=== PATIENT | female | born 1955 | race Caucasian/White ===

== ENCOUNTER 2017-08-03 10:17 | Emergency (ER) | payer OTHER ==
[2017-08-03 10:37] VITALS: PULSE 60; RESP 18; TEMP 97.6; O2SAT 100
[2017-08-03] MEDS ORDERED: Sodium Chloride 0.9% 1,000 ML IV STA (10:58)
--- NOTE | 2017-08-03 11:54 | ED PDOC ---
HPI: General Adult Time Seen by Provider: 08/03/17 10:39 Chief Complaint (Nursing): Flu-like Symptoms Chief Complaint (Provider): Cough, Sore Throat, Fever, Body Aches History Per: Patient History/Exam Limitations: no limitations Onset/Duration Of Symptoms: Days (x6) Additional Complaint(s): 62 year old female presenting with cough, sore throat, fever and body aches x6 days. The patient states that her body aches are constant, her fever is intermittent and her cough is dry. patient also states that she has been feeling fatigues and has been having palpitations. She reports that she took advil and tylenol which offered no relief. Denies chest pain, difficulty breathing. Non [facility] Provider, Past Medical History Reviewed: Historical Data, Nursing Documentation, Vital Signs Vital Signs: Last Vital Signs Temp 97.6 F 08/03/17 10:36 Pulse 60 08/03/17 10:36 Resp 18 08/03/17 10:36 BP 122/70 08/03/17 14:05 Pulse Ox 100 08/03/17 15:38 - Medical History PMH: HTN - Surgical History Other surgeries: Tubal Ligation - Family History Family History: States: Unknown Family Hx - Social History Current smoker - smoking cessation education provided: No Ex-Smoker (has not smoked in the last 12 months): No Alcohol: None Drugs: Denies - Home Medications Home Medications: Ambulatory Orders Medication Instructions Recorded guaiFENesin/Dextromethorphan 1 tab PO Q6 PRN #20 tab 08/03/17 [guaiFENesin/DM 600-30 mg] - Allergies Allergies/Adverse Reactions: Allergies Allergy/AdvReac Type Severity Reaction Status Date / Time Penicillins Allergy RASH Verified 08/03/17 10:35 Review of Systems ROS Statement: Except As Marked, All Systems Reviewed And Found Negative Constitutional: Positive for: Fever, Other (body aches; Fatigue) ENT: Positive for: Throat Pain Cardiovascular: Positive for: Palpitations. Negative for: Chest Pain Respiratory: Positive for: Cough Physical Exam - Reviewed Nursing Documentation Reviewed: Yes Vital Signs Reviewed: Yes - Physical Exam Appears: Positive for: Non-toxic, No Acute Distress Head Exam: Positive for: ATRAUMATIC, NORMAL INSPECTION, NORMOCEPHALIC Skin: Positive for: Normal Color, Warm, Dry. Negative for: Rash Eye Exam: Positive for: Normal appearance, EOMI, PERRL. Negative for: Nystagmus ENT: Positive for: Normal ENT Inspection. Negative for: Nasal Congestion, Tonsillar Exudate, Tonsillar Swelling Neck: Positive for: Normal, Painless ROM, Supple Cardiovascular/Chest: Positive for: Regular Rate, Rhythm, Chest Non Tender. Negative for: Tachycardia Respiratory: Positive for: Normal Breath Sounds. Negative for: Wheezing, Respiratory Distress Gastrointestinal/Abdominal: Positive for: Normal Exam, Bowel Sounds, Soft. Negative for: Tenderness, Guarding, Rebound Back: Positive for: Normal Inspection. Negative for: L CVA Tenderness, R CVA Tenderness Extremity: Positive for: Normal ROM. Negative for: Tenderness, Deformity, Swelling Lymphatic: Positive for: Normal Exam. Negative for: Adenopathy Neurologic/Psych: Positive for: Alert, Oriented, Gait - Laboratory Results Result Diagrams: 08/03/17 11:29 08/03/17 11:29 - ECG O2 Sat by Pulse Oximetry: 100 (RA) Pulse Ox Interpretation: Normal - Radiology X-Ray: Viewed By Me, Read By Radiologist X-Ray Interpretation: No Acute Disease - Progress Re-evaluation Time: 15:37 Condition: Re-examined, Improved Medical Decision Making Medical Decision Makin Initial Impression 62 y/o female presenting with cough, congestion, fever and body aches. Impression: Influenza, URI less like pneumonia, UTI Initial plan: * BMP * Udip * CBC * NS 1000 ml IV 1000 mls/hr * Toradol 15mg IVP * Zofran 4mg IV * Influenza A B * Reevaluation 1435 Chest PA and lateral FINDINGS: LUNGS: No active pulmonary disease. PLEURA: No significant pleural effusion identified. No pneumothorax apparent. CARDIOVASCULAR: Normal. No interval change. OSSEOUS STRUCTURES: No significant abnormalities. VISUALIZED UPPER ABDOMEN: Normal. OTHER FINDINGS: None. IMPRESSION: No active disease. No interval change. Documented by Dottie Humphrey acting as a scribe for Bubba Chow MD. All medical record entries made by the Scribe were at my direction and personally dictated by me. I have reviewed the chart and agree that the record accurately reflects my personal performance of the history, physical exam, medical decision making, and the department course for this patient. I have also personally directed, reviewed, and agree with the discharge instructions and disposition. Disposition - Clinical Impression Clinical Impression: Influenza - Patient ED Disposition Is Patient to be Admitted: No Doctor Will See Patient In The: Office Counseled Patient/Family Regarding: Studies Performed, Diagnosis, Need For Followup - Disposition Referrals: [facility] [Outside] Disposition: Routine/Home Disposition Time: 16:00 Condition: GOOD Additional Instructions: Take tylenol or motrin for pain. Take your medications as instructed. Follow up with your PCP in 2-3 days. Prescriptions: guaiFENesin/Dextromethorphan [guaiFENesin/DM 600-30 mg] 1 tab PO Q6 PRN #20 tab PRN Reason: Cough Instructions: Influenza (ED) Forms: [employer] ED School/Work Excuse Print Language: URDU
[2017-08-03 12:18] LABS: BASO % 0.2 % (0.0-2.0); HEMOGLOBIN 12.7 g/dL (12.0-16.0); LYMPH # 0.7 K/uL (1.0-4.3); LYMPH % 16.7 % (20.0-40.0); MEAN CELL VOLUME 95.5 fl (81.0-99.0); MEAN CORPUSCULAR HGB CONC 33.5 g/dL (33.0-37.0); MEAN PLATELET VOLUME 10.8 fl (7.2-11.7); MONO # 0.3 K/uL (0.0-0.8); MONO % 8.5 % (0.0-10.0); NEUT % 74.6 % (50.0-75.0); NRBC % 0.2 % (0.0-0.0); RBC 3.97 Mil/uL (3.80-5.20); RED CELL DISTRIBUTION WIDTH 13.9 % (11.5-14.5)
[2017-08-03 12:26] LABS: BLOOD UREA NITROGEN 17 mg/dl (7-17); GFR AFRICAN-AMERICAN > 60; GFR NON-AFRICAN AMERICAN > 60
[2017-08-03 14:06] VITALS: BP 122/70
--- NOTE | 2017-08-03 14:36 | RAD ---
HISTORY: cough fever COMPARISON: 08/26/2012 TECHNIQUE: Chest PA and lateral FINDINGS: LUNGS: No active pulmonary disease. PLEURA: No significant pleural effusion identified. No pneumothorax apparent. CARDIOVASCULAR: Normal. No interval change. OSSEOUS STRUCTURES: No significant abnormalities. VISUALIZED UPPER ABDOMEN: Normal. OTHER FINDINGS: None. IMPRESSION: No active disease. No interval change.
== END 2017-08-03 19:00 | disposition home or self-care (01) ==
LOC: H.ER 10:17
DX: J11.1 Influenza due to unidentified influenza virus with other respiratory manifestations (principal); I10 Essential (primary) hypertension; Z88.0 Allergy status to penicillin
CPT/HCPCS: 71046; 80048; 85025; 87804; 96361; 96374; 96375; 99282; J1885; J2405; J7040

== ENCOUNTER 2018-04-16 13:33 | Emergency (ER) | payer OTHER ==
[2018-04-16 13:46] VITALS: BP 112/70; PULSE 64; RESP 16; TEMP 97; O2SAT 100
[2018-04-16] MEDS ORDERED: Lidocaine 5% Patch TD STA (15:29)
[2018-04-16] MEDS ORDERED: Lidocaine 5% Patch TD ONE (15:38)
--- NOTE | 2018-04-16 16:32 | ED PDOC ---
HPI: Back Time Seen by Provider: 04/16/18 14:58 Chief Complaint (Nursing): Back Pain Chief Complaint (Provider): Back Pain History Per: Patient History/Exam Limitations: no limitations Onset/Duration Of Symptoms: Days Current Symptoms Are (Timing): Still Present Additional Complaint(s): 63 y/o female with a PMHx of HTN presents to the ED for evaluation of low back pain, onset earlier today. Patient reports she was picking up her mother off the floor (who is of heavy set) and felt a snap in her lower back. Denies radiation of pain, numbness, tingling, abdominal pain and incontinence. PMD: Ryan Hughes Past Medical History Reviewed: Historical Data, Nursing Documentation, Vital Signs Vital Signs: Last Vital Signs Temp 97 F L 04/16/18 13:43 Pulse 64 04/16/18 13:43 Resp 16 04/16/18 13:43 BP 112/70 04/16/18 13:43 Pulse Ox 100 04/16/18 13:43 - Medical History PMH: HTN - Surgical History Surgical History: No Surg Hx - Family History Family History: States: Unknown Family Hx - Home Medications Home Medications: Ambulatory Orders Medication Instructions Recorded guaiFENesin/Dextromethorphan 1 tab PO Q6 PRN #20 tab 08/03/17 [guaiFENesin/DM 600-30 mg] Cyclobenzaprine [Cyclobenzaprine 10 mg PO Q8 PRN #10 tab 04/16/18 HCl] - Allergies Allergies/Adverse Reactions: Allergies Allergy/AdvReac Type Severity Reaction Status Date / Time aspirin Allergy RASH Verified 04/16/18 13:47 iodine Allergy ANAPHYLAXIS Verified 04/16/18 13:47 Penicillins Allergy RASH Verified 08/03/17 10:35 Review of Systems ROS Statement: Except As Marked, All Systems Reviewed And Found Negative Musculoskeletal: Positive for: Back Pain (LOWER) Physical Exam - Reviewed Nursing Documentation Reviewed: Yes Vital Signs Reviewed: Yes - Physical Exam Appears: Positive for: In Acute Distress (mild, painful) Gastrointestinal/Abdominal: Positive for: Normal Exam, Soft. Negative for: Tenderness Back: Positive for: Normal Inspection, Other (Bilateral paralumbar tenderness). Negative for: Vertebral Tenderness - ECG O2 Sat by Pulse Oximetry: 100 (RA) Pulse Ox Interpretation: Normal Medical Decision Making Medical Decision Making: Time: 1528 Plan: -- Flexeril 10 mg PO -- Lidocaine 5% 2 ea TD -- Tylenol 650 mg PO -- LS Spine AP/LAT XR XR demonstrates DJD, no fracture. Scribe Attestation: Documented by Anibal Hutchinson, acting as a scribe for Corwin Hart PA-C. Provider Scribe Attestation: All medical record entries made by the Scribe were at my direction and personally dictated by me. I have reviewed the chart and agree that the record accurately reflects my personal performance of the history, physical exam, medical decision making, and the department course for this patient. I have also personally directed, reviewed, and agree with the discharge instructions and disposition. Disposition - Clinical Impression Clinical Impression: Low back pain - Patient ED Disposition Is Patient to be Admitted: No - Disposition Referrals: Ryan Hughes MD [Primary Care Provider] - [facility] [Outside] Disposition: Routine/Home Disposition Time: 16:30 Condition: STABLE Additional Instructions: RL GRANT, thank you for letting us take care of you today. Your provider was Bia Marte MD and you were treated for BACK PAIN. The emergency medical care you received today was directed at your acute symptoms. If you were prescribed any medication, please fill it and take as directed. It may take several days for your symptoms to resolve. Return to the Emergency Department if your symptoms worsen, do not improve, or if you have any other problems. Please contact your doctor or call one of the physicians/clinics you have been referred to that are listed on the Patient Visit Information form that is included in your discharge packet. Bring any paperwork you were given at discharge with you along with any medications you are taking to your follow up visit. Our treatment cannot replace ongoing medical care by a primary care provider outside of the emergency department. Thank you for allowing the [facility] team to be part of your care today. If you had an X-Ray or CT scan: A Radiologist will review the ED reading if any change in treatment is needed we will contact you. If you had a blood, urine, or wound culture: It will take several days for the results, if any change in treatment is needed we will contact you. If you had an STI test: It will take 48 hours for the results. Please call after 1 week if you have not heard back. Prescriptions: Cyclobenzaprine [Cyclobenzaprine HCl] 10 mg PO Q8 PRN #10 tab PRN Reason: Muscle Spasm Instructions: Low Back Pain (DC) Forms: [employer] (N[place]aguan)
--- NOTE | 2018-04-16 16:53 | RAD ---
Date of service: 04/16/2018 PROCEDURE: Radiographs of the Lumbar Spine. HISTORY: trauma COMPARISON: No prior. FINDINGS: BONES: There is normal alignment of the lumbar vertebral bodies. There is normal lumbar lordosis. There is no acute fracture, spondylolysis or spondylolisthesis. Bone mineralization is normal. DISC SPACES: There is mild degenerative disc disease at L5-S1 with reduced disc height and facet arthropathy. The remaining disc heights are maintained. OTHER FINDINGS: There are no pathologic soft tissue calcifications. Both sacroiliac joints are normal. Severe constipation. IMPRESSION: No acute fracture.
== END 2018-04-16 16:46 | disposition home or self-care (01) ==
LOC: H.ER 13:33
DX: M54.5 Low back pain (principal); I10 Essential (primary) hypertension; Z88.0 Allergy status to penicillin